=== PATIENT | male | born 1975 | race Caucasian/White ===

== ENCOUNTER 2020-01-12 11:27 | Emergency (ER) | payer BC, SELFPAY ==
[~2020-01-12] VITALS: Ht 175.3 cm; Wt 83.9 kg
[2020-01-12 11:38] VITALS: Ht 175.3 cm; Wt 83.9 kg
[2020-01-12 12:47] VITALS: BP 118/84
== END 2020-01-12 12:48 | disposition home or self-care (01) ==
LOC: ED 11:27
DX: B34.9 Viral infection, unspecified (principal); E11.9 Type 2 diabetes mellitus without complications; E78.5 Hyperlipidemia, unspecified
CPT/HCPCS: Q0092